=== PATIENT | male | born 1980 | race Caucasian/White ===

== ENCOUNTER → 2019-08-26 | Outpatient (CLI) | payer SELFPAY ==
--- NOTE | 2019-08-26 12:07 | REP ---
Five views lumbar spine: 08/26/2019. Indication: Low back pain. Comparison: None. Findings: There is no acute fracture, subluxation or dislocation. There is mild straightening of the lumbar lordosis which may be positional. The neural foramina are patent. No significant paraspinal soft tissue abnormalities are detected. Impression: No acute osseous lumbar spine injury. Electronically Signed by Jason Braden DO 08/26/2019 11:58 A
== END ==
LOC: M LRY 11:35
PROVIDERS: ATTEND Nurse Practitioner Family
DX: M54.41 Lumbago with sciatica, right side (principal)

== ENCOUNTER → 2023-06-19 | Outpatient (REF) | payer OTHER ==
[2023-06-19 13:38] LABS: ALKALINE PHOSPHATASE 73 U/L (46-116); ALT/SGPT 26 U/L (7.0-40); AST/SGOT 15 U/L (<34); BILIRUBIN,TOTAL 0.3 MG/DL (0.3-1.2); BLOOD UREA NITROGEN 11 MG/DL (9-23); CALCIUM LEVEL 9.4 MG/DL (8.5-10.1); CARBON DIOXIDE LEVEL 30 MMOL/L (20-31); CHLORIDE LEVEL 105 MMOL/L (98-107); CHOLESTEROL LEVEL 193 MG/DL (<200); CHOLESTEROL RISK RATIO 4.26 (<5); CREATININE FOR GFR 0.79 MG/DL (0.70-1.30); GLOMERULAR FILTRATION RATE > 60.0 (>60); GLUCOSE, FASTING 103 MG/DL (60-100); HDL CHOLESTEROL 45.2 MG/DL (>40); LDL CHOLESTEROL 130.8 MG/DL (<100); NON-HDL-C 147.8 MG/DL; POTASSIUM SERUM 4.6 MMOL/L (3.5-5.1); SODIUM LEVEL 141 MMOL/L (136-145); TOTAL PROTEIN 6.7 G/DL (5.7-8.2); TRIGLYCERIDES LEVEL 85 MG/DL (<150)
== END ==
LOC: M SFHCADAM 07:56
PROVIDERS: ATTEND Nurse Practitioner Family
DX: Z79.899 Other long term (current) drug therapy (principal)

== ENCOUNTER → 2023-07-03 | Outpatient (CLI) | payer SELFPAY ==
[2023-07-03 08:19] LABS: ALKALINE PHOSPHATASE 69 U/L (46-116); ALT/SGPT 24 U/L (7.0-40); AST/SGOT 19 U/L (<34); BILIRUBIN,TOTAL 0.4 MG/DL (0.3-1.2); BLOOD UREA NITROGEN 15 MG/DL (9-23); CALCIUM LEVEL 9.1 MG/DL (8.5-10.1); CARBON DIOXIDE LEVEL 32 MMOL/L (20-31); CHLORIDE LEVEL 104 MMOL/L (98-107); CHOLESTEROL LEVEL 198 MG/DL (<200); CHOLESTEROL RISK RATIO 4.64 (<5); CREATININE FOR GFR 0.74 MG/DL (0.70-1.30); GLOMERULAR FILTRATION RATE > 60.0 (>60); GLUCOSE, FASTING 104 MG/DL (60-100); HDL CHOLESTEROL 42.6 MG/DL (>40); LDL CHOLESTEROL 137.8 MG/DL (<100); NON-HDL-C 155.4 MG/DL; POTASSIUM SERUM 4.6 MMOL/L (3.5-5.1); SODIUM LEVEL 141 MMOL/L (136-145); TOTAL PROTEIN 6.7 G/DL (5.7-8.2); TRIGLYCERIDES LEVEL 88 MG/DL (<150)
== END ==
LOC: M LAB 07:04
PROVIDERS: ATTEND Nurse Practitioner Family
DX: Z79.899 Other long term (current) drug therapy (principal)

== ENCOUNTER → 2023-09-11 | Outpatient (RCR) | payer BC | LOC: M PT 08-18 07:47 | PROVIDERS: ATTEND Nurse Practitioner Family | DX: L43.9 Lichen planus, unspecified (principal) ==

== ENCOUNTER 2023-10-08 12:56 | Outpatient (RCR) | payer BC ==
[~2023-10-08 12:56] MED LIST: ACET-897 PO; AMLO1TAB25 PO; HYDR-3363 PO; IBUP200C25 PO; VENL75CA47 PO
[2023-10-09] MEDS ORDERED: COLA100C5 PO (10:47)
== END 2023-10-12 ==
LOC: M PT 12:56
PROVIDERS: ATTEND Nurse Practitioner Family
DX: L28.0 Lichen simplex chronicus (principal)

== ENCOUNTER 2023-10-09 10:14 | Day surgery (SDC) | payer BC ==
[~2023-10-09] VITALS: Ht 182.9 cm; Wt 73.4 kg
[~2023-10-09 10:14] MED LIST changes: +ceFAZolin SOD 2 GM in IV 1 EA IV ONE
[2023-10-09] MEDS ORDERED: LR 1,000 ML IV SCH ×2 (10:45→13:35)
[2023-10-09] MEDS ORDERED: COLA100C5 PO (10:47)
[2023-10-09] MEDS ORDERED: SUGAMMADEX SODIUM 500 MG/5 ML VIAL (BRIDION) As Ordered ONE (10:48)
[2023-10-09] MEDS ORDERED: dexmedeTOMIDine (4MCG/ML)200MCG/50ML BTL (PRECEDEX) As Ordered ONE (10:48)
[2023-10-09] MEDS ORDERED: propofoL 200 MG/20 ML VIAL As Ordered ONE (10:48)
[2023-10-09] MEDS ORDERED: fentaNYL 250 MCG/5 ML INJECTION As Ordered ONE (10:48)
[2023-10-09] MEDS ORDERED: METOCLOPRAMIDE INJ 10MG/2ML VIAL As Ordered ONE (10:48)
[2023-10-09] MEDS ORDERED: MIDAZOLAM INJ 2MG/2ML VIAL As Ordered ONE (10:48)
[2023-10-09] MEDS ORDERED: KETOROLAC 60MG 2ML VIAL As Ordered ONE (10:48)
[2023-10-09] MEDS ORDERED: ONDANSETRON 4MG 2ML VIAL As Ordered ONE (10:48)
[2023-10-09] MEDS ORDERED: ROCURONIUM BROMIDE 50MG/5ML VIAL As Ordered ONE (10:48)
[2023-10-09] MEDS ORDERED: LIDOCAINE 2% 100MG/5ML SDV (FOR ANES.) As Ordered ONE (10:48)
[2023-10-09] MEDS ORDERED: ACETAMINOPHEN 1000MG 100ML IV BAG As Ordered ONE (12:15)
[2023-10-09] MEDS ORDERED: DESFLURANE 240 ML INHALANT As Ordered ONE (12:33)
[2023-10-09] MEDS ORDERED: HYDROMORPHONE HCL 0.5 MG/ 0.5 ML SYRINGE IV PRN (13:35)
[2023-10-09] MEDS ORDERED: ONDANSETRON 4MG 2ML VIAL IV PRN (13:35)
[2023-10-09] MEDS ORDERED: oxyCODONE 5MG TAB PO PRN (13:35)
[2023-10-09] MEDS ORDERED: fentaNYL 100 MCG/2 ML INJECTION IV PRN (13:35)
[2023-10-09] MEDS ORDERED: METOCLOPRAMIDE INJ 10MG/2ML VIAL IV PRN (13:35)
[2023-10-09 14:32] VITALS: BP 133/75; TEMP 97.5; O2SAT 97
== END 2023-10-09 15:01 | disposition home or self-care (01) ==
LOC: M SDC 10:14
PROVIDERS: ATTEND Surgery
DX: K40.90 Unilateral inguinal hernia, without obstruction or gangrene, not specified as recurrent (principal); Z86.69 Personal history of other diseases of the nervous system and sense organs; R21 Rash and other nonspecific skin eruption; I10 Essential (primary) hypertension; F41.9 Anxiety disorder, unspecified; F32.A Depression, unspecified; R51.9 Headache, unspecified; Z87.891 Personal history of nicotine dependence; Z79.899 Other long term (current) drug therapy
CPT/HCPCS: 49650; C1781; J0131; J0665; J0690; J1100; J1885; J2250; J2405; J2765; J3010; S2900

== ENCOUNTER → 2023-11-12 | Outpatient (RCR) | payer BC ==
[~2023-11-12] MED LIST changes: +COLA100C5 PO; -ceFAZolin SOD 2 GM in IV 1 EA IV ONE
== END ==
LOC: M PT 10-29 08:30
PROVIDERS: ATTEND Nurse Practitioner Family
DX: L43.9 Lichen planus, unspecified (principal)

== ENCOUNTER → 2023-12-11 | Outpatient (RCR) | payer BC | LOC: M PT 11-14 12:45 | PROVIDERS: ATTEND Nurse Practitioner Family | DX: L43.9 Lichen planus, unspecified (principal) ==

== ENCOUNTER 2024-01-07 12:00 | Outpatient (RCR) | payer BC | END 2024-01-11 | LOC: M PT 12:00 | PROVIDERS: ATTEND Nurse Practitioner Family | DX: L43.9 Lichen planus, unspecified (principal) ==

== ENCOUNTER 2024-02-05 12:15 | Outpatient (RCR) | payer BC | END 2024-02-10 | LOC: M PT 12:15 | PROVIDERS: ATTEND Nurse Practitioner Family | DX: L43.9 Lichen planus, unspecified (principal) ==

== ENCOUNTER 2024-03-11 12:00 | Outpatient (RCR) | payer BC | END 2024-03-12 | LOC: M PT 12:00 | PROVIDERS: ATTEND Nurse Practitioner Family | DX: L43.9 Lichen planus, unspecified (principal) ==

== ENCOUNTER 2024-04-09 12:00 | Outpatient (RCR) | payer BC | END 2024-04-11 | LOC: M PT 12:00 | PROVIDERS: ATTEND Nurse Practitioner Family | DX: L43.9 Lichen planus, unspecified (principal) ==

== ENCOUNTER → 2024-05-12 | Outpatient (RCR) | payer BC | LOC: M PT 04-12 12:05 | PROVIDERS: ATTEND Nurse Practitioner Family | DX: L43.9 Lichen planus, unspecified (principal) ==

== ENCOUNTER 2024-06-10 10:42 | Outpatient (RCR) | payer BC | END 2024-06-12 | LOC: M PT 10:42 | PROVIDERS: ATTEND Nurse Practitioner Family | DX: L43.9 Lichen planus, unspecified (principal) ==

== ENCOUNTER → 2024-07-12 | Outpatient (RCR) | payer BC | LOC: M PT 06-15 13:31 | PROVIDERS: ATTEND Nurse Practitioner Family | DX: L43.9 Lichen planus, unspecified (principal) ==

== ENCOUNTER → 2024-08-09 | Outpatient (REF) | LOC: M CARPUL 13:40 | PROVIDERS: ATTEND Nurse Practitioner Adult Health | DX: Z00.00 Encounter for general adult medical examination without abnormal findings (principal) ==

== ENCOUNTER 2024-08-11 12:00 | Outpatient (RCR) | payer BC | END 2024-08-12 | LOC: M PT 12:00 | PROVIDERS: ATTEND Nurse Practitioner Family | DX: L43.9 Lichen planus, unspecified (principal) ==

== ENCOUNTER 2024-09-07 12:06 | Outpatient (RCR) | payer BC | END 2024-09-11 | LOC: M PT 12:06 | PROVIDERS: ATTEND Nurse Practitioner Family | DX: L43.9 Lichen planus, unspecified (principal) ==

== ENCOUNTER 2024-10-11 12:00 | Outpatient (RCR) | payer BC | END 2024-10-12 | LOC: M PT 12:00 | PROVIDERS: ATTEND Nurse Practitioner Family | DX: L28.0 Lichen simplex chronicus (principal) ==

== ENCOUNTER 2024-11-10 12:00 | Outpatient (RCR) | payer BC | END 2024-11-12 | LOC: M PT 12:00 | PROVIDERS: ATTEND Nurse Practitioner Family | DX: L43.9 Lichen planus, unspecified (principal) ==

== ENCOUNTER 2024-11-24 12:13 | Outpatient (RCR) | payer BC | END 2024-12-10 | LOC: M PT 12:13 | PROVIDERS: ATTEND Nurse Practitioner Family | DX: L43.9 Lichen planus, unspecified (principal) ==

== ENCOUNTER 2025-01-06 06:21 | Emergency (ER) | payer BC ==
[~2025-01-06] VITALS: Ht 182.9 cm; Wt 75.0 kg
[2025-01-06 07:07] LABS: BASO % 0.5 % (0.0-1.0); EOS # 0.1 10^3/uL (0.0-0.5); EOS % 1.9 % (0.0-3.0); HEMATOCRIT 42.3 % (42.0-52.0); HEMOGLOBIN 14.2 g/dl (13.5-17.5); LYMPH # 1.9 10^3/uL (1.5-5.0); LYMPH % 31.8 % (24.0-44.0); MEAN CORPUSCULAR HEMOGLOBIN 31.6 pg (27.0-33.0); MEAN CORPUSCULAR HGB CONC 33.6 g/dl (32.0-36.5); MONO # 0.5 10^3/uL (0.0-0.8); MONO % 7.9 % (2.0-8.0); NEUTROPHILS # 3.4 10^3/uL (1.5-8.5); NEUTROPHILS % 57.2 % (36.0-66.0); PLATELET COUNT, AUTOMATED 189 10^3/uL (150-450); WHITE BLOOD COUNT 5.9 10^3/uL (4.0-10.0)
[2025-01-06] MEDS: ASPIRIN 81MG CHEW TABLET PO ONE (07:29)
[2025-01-06] MEDS: ACETAMINOPHEN *IV* 1,000 MG in IV 1 EA IV ONE (07:29)
[2025-01-06 07:39] LABS: CK-MB VALUE MASS 1.1 NG/ML (<3.6); LIPASE 52 U/L (12-53)
[2025-01-06 07:41] LABS: ALBUMIN 3.7 G/DL (3.2-5.2); ALKALINE PHOSPHATASE 93 U/L (40-129); ALT/SGPT 32 U/L (7.0-40); AST/SGOT 19 U/L (<34); BILIRUBIN,DIRECT < 0.1 MG/DL (<0.4); BILIRUBIN,TOTAL 0.3 MG/DL (0.3-1.2); BLOOD UREA NITROGEN 15 MG/DL (9-23); CALCIUM LEVEL 9.1 MG/DL (8.5-10.1); CARBON DIOXIDE LEVEL 28 MMOL/L (20-31); CHLORIDE LEVEL 107 MMOL/L (98-107); GLOMERULAR FILTRATION RATE > 60.0 (>60); GLUCOSE, FASTING 142 MG/DL (60-100); POTASSIUM SERUM 4.2 MMOL/L (3.5-5.1); SODIUM LEVEL 143 MMOL/L (136-145); TOTAL PROTEIN 6.8 G/DL (5.7-8.2)
[2025-01-06 07:49] LABS: CPK CREATINE PHOSPHOKINASE 161 U/L (46-171); MB/CK RELATIVE INDEX 0.68 (< OR =4)
[2025-01-06] MEDS: MORPHINE 2 MG/ML 1ML VIAL IV PRN (08:00)
[2025-01-06] MEDS ORDERED: ISOVUE-370 76% 100ML VIAL As Ordered ONE (08:09)
[2025-01-06 08:56] LABS: CK-MB VALUE MASS 1.1 NG/ML (<3.6)
[2025-01-06 09:00] LABS: CPK CREATINE PHOSPHOKINASE 160 U/L (46-171); MB/CK RELATIVE INDEX 0.68 (< OR =4)
[2025-01-06] MEDS: KETOROLAC 30 MG/ML 1ML VIAL IV ONE (10:00)
[2025-01-06 10:07] VITALS: BP 115/74; TEMP 97.9; O2SAT 99
== END 2025-01-06 10:09 | disposition home or self-care (01) ==
LOC: M ED 06:21
DX: R07.9 Chest pain, unspecified (principal); M94.0 Chondrocostal junction syndrome [Tietze]; R00.1 Bradycardia, unspecified; I10 Essential (primary) hypertension; F19.10 Other psychoactive substance abuse, uncomplicated; Z79.1 Long term (current) use of non-steroidal anti-inflammatories (NSAID); Z79.899 Other long term (current) drug therapy
CPT/HCPCS: 71045; 71275; 80048; 80076; 82550; 82553; 83690; 84484; 85025; 93005; 93041; 94760; 96365; 96366; 96375; 99285; J0131; J1885; Q9967

== ENCOUNTER → 2025-07-27 | Outpatient (REF) | LOC: M CARPUL 08:33 | PROVIDERS: ATTEND Family Medicine | DX: Z02.1 Encounter for pre-employment examination (principal) ==